=== PATIENT | female | born 1950 | race Caucasian/White ===

== ENCOUNTER 2018-04-10 16:27 | Inpatient (IN) | payer MEDICARE, OTHER ==
[~2018-04-10] VITALS: Ht 165.1 cm; Wt 55.3 kg
--- NOTE | 2018-04-10 16:28 | NUR ---
PT IS IN ROOM #1A. DR LEIGH EVALUATED THE PT.
[2018-04-10] MEDS ORDERED: IPRATROPIUM BROMIDE 0.5 MG/2.5 ML NEBU NEB ONE ×2 (16:30→18:00)
[2018-04-10] MEDS ORDERED: IV NORMAL SALINE 500 ML BAG IV ONE (16:30)
[2018-04-10] MEDS ORDERED: ALBUTEROL SULFATE 2.5 MG/3 ML NEBU NEB ONE ×3 (16:30→20:00)
[2018-04-10] MEDS ORDERED: methylPREDNISolone SOD SUCC 125 MG/2 ML VIAL IV ONE (16:30)
[2018-04-10] MEDS ORDERED: CLON1TAB PO (16:40)
[2018-04-10] MEDS ORDERED: ALBU18HF2 IH (16:40)
[2018-04-10] MEDS ORDERED: AMOX-427 PO (16:40)
[2018-04-10] MEDS ORDERED: methylPREDNISolone SOD SUCC 125 MG/2 ML VIAL ONE (16:50)
[2018-04-10 16:53] LABS: BASOPHILS % (AUTO) 0.5 % (0.0-2.0); EOSINOPHILS # (AUTO) 0.9 K/uL (0.0-0.7); EOSINOPHILS % (AUTO) 12.3 % (0.0-7.0); HEMATOCRIT 46.4 % (31.2-41.9); HEMOGLOBIN 15.7 g/dL (10.9-14.3); LYMPHOCYTES % (AUTO) 28.5 % (20.5-51.5); MEAN CORPUSCULAR HEMOGLOBIN 31.8 uug (24.7-32.8); MEAN CORPUSCULAR HGB CONC 34 g/dL (32.3-35.6); MEAN CORPUSCULAR VOLUME 94.3 fL (75.5-95.3); MONOCYTES # (AUTO) 0.7 K/uL (2.0-10.0); MONOCYTES % (AUTO) 9.7 % (0.0-11.0); NEUTROPHILS # (AUTO) 3.4 K/uL (1.8-8.9); PLATELET COUNT (AUTO) 314 K/uL (179-408); RED BLOOD CELL COUNT(AUTO) 4.92 MIL/uL (3.63-4.92)
[2018-04-10] MEDS ORDERED: ALBUTEROL SULFATE 2.5 MG/3 ML NEBU ONE ×2 (17:00→17:57)
[2018-04-10] MEDS ORDERED: IPRATROPIUM BROMIDE 0.5 MG/2.5 ML NEBU ONE ×2 (17:00→17:57)
[2018-04-10 17:01] LABS: CREATININE 0.9 mg/dL (0.6-1.3); POTASSIUM 3.5 mmol/L (3.5-5.1)
[2018-04-10 17:15] LABS: BILIRUBIN,DIRECT 0.2 mg/dL (0.0-0.2); BILIRUBIN,TOTAL 0.5 mg/dL (0.2-1.0); TOTAL PROTEIN, SERUM 7.8 g/dL (6.4-8.2)
[2018-04-10] MEDS ORDERED: LORAZEPAM 2 MG/1 ML VIAL IV ONE (18:30)
[2018-04-10] MEDS ORDERED: LORAZEPAM 2 MG/1 ML VIAL ONE (18:34)
[2018-04-10] MEDS ORDERED: Z GUARD REMEDY PASTE 57 GM TUBE TOP PRN (19:00)
[2018-04-10] MEDS ORDERED: ACETAMINOPHEN 325 MG TABLET PO PRN (19:00)
[2018-04-10] MEDS ORDERED: ONDANSETRON 4 MG/2 ML VIAL IV PRN (19:00)
[2018-04-10] MEDS ORDERED: MAGNESIUM HYDROXIDE 30 ML LIQUID UDC PO PRN (19:00)
--- NOTE | 2018-04-10 19:07 | NUR ---
REPORT GIVEN TO MAINTENANCE HELPER RN.
--- NOTE | 2018-04-10 19:47 | NUR ---
BILATERAL WHEEZING AUSCULTATED BILATERALLY, MD MADE AWARE.
[2018-04-10] MEDS ORDERED: MAGNESIUM SULFATE/D5W 100 ML IV SCH (20:00)
[2018-04-10] MEDS ORDERED: MAGNESIUM SULFATE/D5W 100 ML IV STA (20:49)
[2018-04-10] MEDS ORDERED: MAGNESIUM SULFATE/D5W 100 ML ONE (20:56)
--- NOTE | 2018-04-10 21:01 | NUR ---
REPORT GIVEN TO [facility] NURSE, CHANI BEAR
--- NOTE | 2018-04-10 21:25 | NUR ---
Pt. admitted to [facility], under care of BART JONES Belongs List completed
[2018-04-10 21:30] VITALS: BP 105/50
--- NOTE | 2018-04-10 21:30 | NUR ---
Received patient from ER in stable condition with no acute distress. Admit Dx of Acute Bronchospasm. Patient is A/Ox4 & able to make all her needs known. Pertinent assessment completed upon admission. Vital signs within range. MD/PROGRAM MANAGER SLP aware of patient arrival to unit. On 3L o2 via NC. Patient denies pain & SOB. Noted with 20G IV left wrist which is patent & flushing well. Oriented patient to unit. Call light within reach of patient. Will continue to monitor through shift.
[2018-04-10] MEDS ORDERED: LEVOFLOXACIN 750MG/D5W 750 MG in PREMIXED 1 EACH IV SCH (22:15)
[2018-04-10] MEDS ORDERED: QUETIAPINE FUMARATE 200 MG TABLET PO ONE (22:30)
[2018-04-10] MEDS ORDERED: LEVOFLOXACIN 750MG/D5W 150 ML IV ONE (23:05)
--- NOTE | 2018-04-10 23:12 | NUR ---
Administered Levaquin 750mg IV to patient per MD order. Medication was pulled from [facility]. Pharmacy after hours notified, charge nurse notified.
[2018-04-10] MEDS: methylPREDNISolone SOD SUCC 40 MG/ML VIAL IV SCH (23:19)
[2018-04-11] MEDS: IPRATROPIUM BROMIDE 0.5 MG/2.5 ML NEBU NEB PRN ×3 (02:03→19:28)
[2018-04-11] MEDS: ALBUTEROL SULFATE 2.5 MG/3 ML NEBU NEB PRN ×3 (02:03→19:28)
[2018-04-11 03:52] VITALS: BP 99/47
[2018-04-11] MEDS: methylPREDNISolone SOD SUCC 40 MG/ML VIAL IV SCH ×4 (06:05→23:06)
[2018-04-11] MEDS: PANTOPRAZOLE SODIUM 40 MG TABLET.DR PO SCH (06:05)
--- NOTE | 2018-04-11 06:22 | NUR ---
Patient stable through shift. No acute distress noted. Complaint with care. Vital signs WNL. All needs attended to. Patient denies SOB and pain. Medications administered as per MD order. Safety measures implemented. Call light within reach of patient. Will endorse to day shift nurse.
[2018-04-11 06:25] LABS: BASOPHILS # (AUTO) 0.1 K/uL (0.0-8.0); BASOPHILS % (AUTO) 1.1 % (0.0-2.0); HEMOGLOBIN 15.1 g/dL (10.9-14.3); LYMPHOCYTES # (AUTO) 0.7 K/uL (20.0-40.0); LYMPHOCYTES % (AUTO) 10.3 % (20.5-51.5); MEAN CORPUSCULAR HEMOGLOBIN 31.7 uug (24.7-32.8); MEAN CORPUSCULAR HGB CONC 34 g/dL (32.3-35.6); MEAN CORPUSCULAR VOLUME 94.6 fL (75.5-95.3); MONOCYTES # (AUTO) 0.2 K/uL (2.0-10.0); MONOCYTES % (AUTO) 2.3 % (0.0-11.0); NEUTROPHILS % (AUTO) 86.3 % (38.5-71.5); PLATELET COUNT (AUTO) 309 K/uL (179-408); RED BLOOD CELL COUNT(AUTO) 4.76 MIL/uL (3.63-4.92)
[2018-04-11 06:39] LABS: CREATININE 0.9 mg/dL (0.6-1.3); PHOSPHOROUS 2.1 mg/dL (2.5-4.9); POTASSIUM 3.8 mmol/L (3.5-5.1)
[2018-04-11 07:46] LABS: THYROID STIMULATING HORMONE 0.114 mIU/mL (0.358-3.740)
--- NOTE | 2018-04-11 08:30 | NUR ---
AWAKE COOPERATE WELL NO SOB OR PAIN EAT BREAKFASTMOD AMT OOB TO BRP SELF WELL STATE HAVING BM THIS MORNING RESTING QUIET WITH CALL LIGHT IN REACH
[2018-04-11] MEDS: CLONAZEPAM 1 MG TABLET PO SCH ×2 (09:37→17:06)
[2018-04-11] MEDS: NICOTINE 21 MG/24HR PATCH TD SCH (09:37)
[2018-04-11] MEDS: HYDROCODONE/APAP 5-325MG TABLET PO PRN ×2 (09:42→20:05)
[2018-04-11] MEDS: IV NS 1000 ML 1,000 ML IV PRN (11:06)
[2018-04-11 15:12] VITALS: BP 95/50
[2018-04-11] MEDS ORDERED: GUAIFENESIN SUGAR FREE 100 MG/5 ML UDC PO PRN (15:15)
[2018-04-11] MEDS ORDERED: NEUTRA PHOS PACKET PO ONE (15:15)
--- NOTE | 2018-04-11 18:30 | NUR ---
STABLE CONDITION NO ACUTE DISTRESS NO SOB ,PAIN UNDER CONTROL SAFETY MEASURE PROVIDED CALL LIGHT IN REACH
[2018-04-11] MEDS ORDERED: PARO40TA4 PO (18:51)
[2018-04-11] MEDS ORDERED: BUPR1FIL3 SL (18:52)
[2018-04-11 19:25] VITALS: BP 104/44
--- NOTE | 2018-04-11 19:52 | NUR ---
Received patient in stable condition at start of shift with no acute distress. Patient requesting breathing Tx, Will f/u. Patient also complaining of headache. Will administer pain med per MD order & re assess. Pertinent assessment completed. Noted with Left wrist IV 20G running with NS at 75cc/hr. No s/s of infiltration at the IV site. Vital signs WNL. Denies SOB. Bed in low position & locked. Call light within reach. Will continue to monitor through shift.
[2018-04-11] MEDS ORDERED: QUETIAPINE FUMARATE 200 MG TABLET PO SCH ×2 (21:00)
[2018-04-11] MEDS ORDERED: LEVOFLOXACIN 750MG/D5W 750 MG in PREMIXED 1 EACH IV SCH (22:00)
[2018-04-12] MEDS: IV NS 1000 ML 1,000 ML IV PRN (02:33)
[2018-04-12 03:36] VITALS: BP 105/44
[2018-04-12] MEDS: HYDROCODONE/APAP 5-325MG TABLET PO PRN ×2 (04:03→11:41)
[2018-04-12] MEDS: IPRATROPIUM BROMIDE 0.5 MG/2.5 ML NEBU NEB PRN (04:12)
[2018-04-12] MEDS: ALBUTEROL SULFATE 2.5 MG/3 ML NEBU NEB PRN (04:13)
[2018-04-12] MEDS: PANTOPRAZOLE SODIUM 40 MG TABLET.DR PO SCH (06:03)
[2018-04-12] MEDS: methylPREDNISolone SOD SUCC 40 MG/ML VIAL IV SCH ×2 (06:03→11:41)
--- NOTE | 2018-04-12 06:17 | NUR ---
Patient compliant with care. Slept well through the shift. Vital signs within range. All needs attended to. Complained of headache pain during shift. Relieved by pain medication. All medications given per MD order. Breathing Tx tolerated with RT. No SOB noted. Safety measures implemented. Call light within reach. Will endorse accordingly.
[2018-04-12 07:07] LABS: HEMOGLOBIN 15.2 g/dL (10.9-14.3); MONOCYTES # (AUTO) 0.9 K/uL (2.0-10.0); MONOCYTES % (AUTO) 4.5 % (0.0-11.0)
[2018-04-12 07:20] LABS: BASOPHILS % (AUTO) 0.1 % (0.0-2.0); HEMATOCRIT 46.4 % (31.2-41.9); LYMPHOCYTES # (AUTO) 1.2 K/uL (20.0-40.0); LYMPHOCYTES % (AUTO) 5.7 % (20.5-51.5); MEAN CORPUSCULAR HEMOGLOBIN 31.5 uug (24.7-32.8); MEAN CORPUSCULAR HGB CONC 33 g/dL (32.3-35.6); NEUTROPHILS # (AUTO) 18.6 K/uL (1.8-8.9); NEUTROPHILS % (AUTO) 89.7 % (38.5-71.5); PLATELET COUNT (AUTO) 313 K/uL (179-408); RED BLOOD CELL COUNT(AUTO) 4.83 MIL/uL (3.63-4.92); WHITE BLOOD COUNT (AUTO) 20.7 K/uL (3.8-11.8)
[2018-04-12 07:25] LABS: POTASSIUM 5.1 mmol/L (3.5-5.1)
[2018-04-12] MEDS: CLONAZEPAM 1 MG TABLET PO SCH (08:09)
[2018-04-12] MEDS: NICOTINE 21 MG/24HR PATCH TD SCH (08:09)
--- NOTE | 2018-04-12 08:30 | NUR ---
AWAKE ALERT NO SOB OR PAIN EAT BREAKFAST WELL CONTINUE IVF ,RESTING QUIET IN BED WITH CALL LIGHT IN REACH
[2018-04-12] MEDS ORDERED: PAROXETINE HCL 20 MG TABLET PO SCH (09:00)
--- NOTE | 2018-04-12 10:00 | NUR ---
ASSIST TO TAKE SHOWER DOING WELL NO DIZZINESS OR PAIN DR SNYDER SEE PATIENT THIS AM
[2018-04-12 11:20] VITALS: BP 111/57
--- NOTE | 2018-04-12 12:00 | NUR ---
D/C INSTRUCTION REGARDING F/U WITH OWN PMD CALL FOR APPIONTMENT CONTINUE HOME MEDICINE PRECRIPTION AND ORDER EDUCATION PK GAVE ,VERBALIZES UNDERSTAND AND SIGNS D/C SHEET [facility] WILL INSTRUCTION ALL HOME MEDICINE PRIOR D/C HOME AND HL WAS DISCONTINUE
--- NOTE | 2018-04-12 13:45 | NUR ---
D/C HOME VIA [facility]AXI CONDITION STABLE NO SOB OR PAIN
== END 2018-04-12 13:45 | disposition home or self-care (01) | DRG 190 ==
LOC: ER 16:28 → MED 21:12
PROVIDERS: ADMIT Hospitalist; ATTEND Hospitalist
DX: J44.0 Chronic obstructive pulmonary disease with (acute) lower respiratory infection (principal); J18.9 Pneumonia, unspecified organism; J45.901 Unspecified asthma with (acute) exacerbation; Z90.710 Acquired absence of both cervix and uterus; Z90.49 Acquired absence of other specified parts of digestive tract; F17.210 Nicotine dependence, cigarettes, uncomplicated; E83.39 Other disorders of phosphorus metabolism; F41.9 Anxiety disorder, unspecified; Z79.899 Other long term (current) drug therapy; F32.9 Major depressive disorder, single episode, unspecified; R09.02 Hypoxemia; I10 Essential (primary) hypertension; J20.9 Acute bronchitis, unspecified
CPT/HCPCS: 36415; 70030-TC; 71045; 83735; 84100; 84443; 85025; 93005; 94640; 94664; A4663; J1956; J2060; J2920; J2930; J3475; J3590; J7030; J7040